=== PATIENT | male | born 1990 | race Two or more races ===

== ENCOUNTER 2017-12-19 19:35 | Emergency (ER) | payer OTHER ==
[~2017-12-19] VITALS: Ht 182.9 cm; Wt 86.2 kg
[2017-12-19 19:33] VITALS: BP 128/78
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
[2017-12-19] MEDS ORDERED: IBUPROFEN600 MG ORAL (20:21)
[2017-12-19 20:43] VITALS: BP 128/78
--- NOTE | 2017-12-20 13:06 | Diagnostic Imaging Report ---
Indication: And pain Technique: 3 views left hand Comparison: None Findings: No acute fractures. No dislocations. The joint spaces are preserved. Impression: Negative
== END 2017-12-19 20:43 | disposition home or self-care (01) ==
LOC: EDBD 19:35 → EMR 20:38
DX: S63.619A Unspecified sprain of unspecified finger, initial encounter (principal); Y35.811A Legal intervention involving manhandling, law enforcement official injured, initial encounter; Y92.9 Unspecified place or not applicable
CPT/HCPCS: 99284